=== PATIENT | male | born 1990 | race Two or more races ===

== ENCOUNTER 2018-09-03 15:11 | Emergency (ER) | payer SELFPAY ==
[~2018-09-03] VITALS: Ht 180.3 cm; Wt 86.2 kg
[2018-09-03 18:35] VITALS: BP 121/81
[2018-09-03] MEDS ORDERED: HYDROcodone-ACET 7.5/325MG TAB PO ONE (19:15)
[2018-09-03] MEDS ORDERED: BACLOFEN 10 MG TAB PO ONE (19:15)
== END 2018-09-03 19:42 | disposition home or self-care (01) ==
LOC: ER 15:24
DX: S06.0X0A Concussion without loss of consciousness, initial encounter (principal); M62.830 Muscle spasm of back; M62.838 Other muscle spasm; V86.55XA Driver of 3- or 4- wheeled all-terrain vehicle (ATV) injured in nontraffic accident, initial encounter; Y93.89 Activity, other specified; Y99.8 Other external cause status; Y92.89 Other specified places as the place of occurrence of the external cause
CPT/HCPCS: 70450; 71101; 73110; 73502